=== PATIENT | female | born 1960 | race African-American/Black ===

== ENCOUNTER 2017-07-10 10:44 | Observation (INO) | payer OTHER ==
[~2017-07-10] VITALS: Ht 172.7 cm; Wt 115.0 kg
[2017-07-10] VITALS (8 sets, daily range): BP systolic 122–194; BP diastolic 56–92; PULSE 65–83; RESP 14–18; TEMP 98.3–98.4; O2SAT 94–100
[~2017-07-10 10:44] MED LIST: CENTRUM SILVER; PROT40TA PO; VITAMIN D
[2017-07-10] MEDS ORDERED: SODIUM CHLORIDE 0.9% FLUSH 10 ML FLUSH IVF PRN (11:15)
[2017-07-10] MEDS ORDERED: PRED5TAB PO (11:23)
[2017-07-10] MEDS ORDERED: ACET300T2 PO (11:23)
[2017-07-10] MEDS ORDERED: SULF500T3 PO (11:23)
[2017-07-10] MEDS ORDERED: FURO20TA PO (11:23)
[2017-07-10] MEDS ORDERED: SODIUM CHLOR 0.9% 1000 ML INJ 1,000 ML IV ONE (11:24)
--- NOTE | 2017-07-10 11:40 | PD ---
HPI Chief Complaint: Seizure Time Seen by Provider: 11:24 Travel History International Travel<30 days: No Contact w/Intl Traveler<30days: No Traveled to known affect area: No History of Present Illness HPI 56-year-old female patient with history of multiple episodes of previous TIAs, most recently at [facility], hypertension, presents to the ER today brought in by her coworker because she started having similar symptoms of the last time, difficulty talking, stated right sided numbness. Patient initially was thought to have seizure history but she actually denies seizure history when she arrived in the room. Considering her recent history and symptoms, stroke alert was called. Modifying Factors: None Associated Signs & Symptoms: Stroke alert Risk Factors: Previous history of TIAs PFSH Past Medical History Anxiety: Yes Cancer: No Cardiovascular Problems: No Diabetes: No Endocrine: No Genitourinary: No Hepatitis: No Hiatal Hernia: Yes Immune Disorder: No Musculoskeletal: No Neurologic: No Psychiatric: No Reproductive: No Respiratory: No Immunizations Current: Yes Thyroid Disease: No ?: Not Past Surgical History Abdominal Surgery: Yes (GALLBLADDER) AICD: No Cardiac Surgery: No Ear Surgery: No Endocrine Surgery: No Eye Surgery: No Genitourinary Surgery: No Gynecologic Surgery: Yes (HYSTERECTOMY,TUBAL LIGATION) Joint Replacement: No Oral Surgery: No Pacemaker: No Thoracic Surgery: No Other Surgery: Yes (GALLBLADDER,HYSTERECTOMY, ABDOMINAL SCAR TISSUE,HIATAL HERNIA) Social History Alcohol Use: Yes Tobacco Use: No Substance Use: No Allergies-Medications (Allergen,Severity, Reaction): Coded Allergies: No Known Allergies (Verified Allergy, Unknown, 07/10/17) Reported Meds & Prescriptions Reported Meds & Active Scripts Active Reported Acetaminophen-Codeine 300-30 mg Tab 1 Tab PO Q4H PRN Sulfasalazine 500 Mg Tab 500 Mg PO Q6H Prednisone 5 Mg Tab 5 Mg PO DAILY Furosemide 20 Mg Tab 20 Mg PO DAILY Review of Systems ROS Limitations: Altered Mental Status Except as stated in HPI: all other systems reviewed are Neg Physical Exam Narrative GENERAL: Well-developed middle age -[place] female patient currently in mild distress. Awake, lethargic, oriented 3, able to answer questions appropriately although slowly. SKIN: Focused skin assessment warm/dry. HEAD: Atraumatic. Normocephalic. EYES: Pupils equal and round. No scleral icterus. No injection or drainage. ENT: No nasal bleeding or discharge. Mucous membranes pink and moist. NECK: Trachea midline. No JVD. CARDIOVASCULAR: Regular rate and rhythm. No murmur appreciated. RESPIRATORY: No accessory muscle use. Clear to auscultation. Breath sounds equal bilaterally. GASTROINTESTINAL: Abdomen soft, non-tender, nondistended. Hepatic and splenic margins not palpable. MUSCULOSKELETAL: No obvious deformities. No clubbing. No cyanosis. No edema. NEUROLOGICAL: Awake and alert. No obvious cranial nerve deficits. Mild right leg weakness compared to the left. Slow speech, no dysarthria, no aphasia. PSYCHIATRIC: Appropriate mood and affect; insight and judgment normal. Data Data Last Documented VS Vital Signs Date Time Temp Pulse Resp B/P (MAP) Pulse Ox O2 Delivery O2 Flow Rate FiO2 07/10/17 12:30 97 Room Air 07/10/17 12:11 79 142/79 (100) 07/10/17 11:25 2.00 07/10/17 10:48 98.4 14 Orders Orders Complete Blood Count With Diff (07/10/17 11:12) Electrocardiogram (07/10/17 ) Blood Glucose (07/10/17 11:12) Ecg Monitoring (07/10/17 11:12) Iv Access Insert/Monitor (07/10/17 11:12) Oximetry (07/10/17 11:12) Comprehensive Metabolic Panel (07/10/17 11:12) Sodium Chloride 0.9% Flush (Ns Flush) (07/10/17 11:15) Diet Npo (07/10/17 Lunch) Activity Bed Rest (07/10/17 ) Electrocardiogram (07/10/17 ) I-Stat Creatinine (07/10/17 11:24) I-Stat Profile (07/10/17 11:24) Prothrombin Time / Inr (Pt) (07/10/17 11:24) Act Partial Throm Time (Ptt) (07/10/17 11:24) Fibrinogen (07/10/17 11:24) Creatine Kinase (Cpk) (07/10/17 11:24) Troponin I (07/10/17 11:24) Ua Includes Microscopic (07/10/17 11:24) Drug Screen, Random Urine (07/10/17 11:24) Type And Screen (07/10/17 11:24) Ct Brain W/O Iv Contrast(Rout) (07/10/17 ) Neuro Checks Q2HX12,Q4H (07/10/17 11:24) Nursing Bedside Swallow Assess .ONCE (07/10/17 11:24) NPO (07/10/17 11:24) Oxygen Administration (07/10/17 11:24) Sodium Chlor 0.9% 1000 Ml Inj (Ns 1000 M (07/10/17 11:24) Resp Oxygen Jovan C Titrat 1-4 L (07/10/17 11:24) Cath For Specimen (07/10/17 11:24) Mri Brain W/O Contrast (07/10/17 11:30) Aspirin (Aspirin) (07/10/17 12:45) Consult Neurology (07/10/17 ) (Hub Use Only)Inp Phy Cons/Ref (07/10/17 ) Admit Order (Ed Use Only) (07/10/17 12:45) Labs Laboratory Tests Test 07/10/17 11:30 07/10/17 11:35 07/10/17 12:28 Bedside Hemoglobin 12.6 G/DL Bedside Hematocrit 37.0 % Prothrombin Time 10.5 SEC Prothromb Time International Ratio 1.0 RATIO Activated Partial Thromboplast Time 24.3 SEC Fibrinogen 383 mg/dL Bedside Sodium 139 MMOL/L Blood Urea Nitrogen 13 MG/DL Creatinine 0.70 MG/DL Random Glucose 89 MG/DL Total Protein 8.2 GM/DL Albumin 3.7 GM/DL Calcium Level 9.0 MG/DL Alkaline Phosphatase 177 U/L Aspartate Amino Transf (AST/SGOT) 20 U/L Alanine Aminotransferase (ALT/SGPT) 28 U/L Total Bilirubin 0.3 MG/DL Sodium Level 138 MEQ/L Potassium Level 3.8 MEQ/L Chloride Level 105 MEQ/L Carbon Dioxide Level 25.4 MEQ/L Bedside Potassium 3.9 MMOL/L Bedside Chloride 104 MMOL/L Anion Gap 8 MEQ/L Bedside Blood Urea Nitrogen 15 MG/DL Bedside Creatinine 0.7 MG/DL Estimat Glomerular Filtration Rate 106 ML/MIN Bedside Glucose 93 MG/DL Total Creatine Kinase 66 U/L Troponin I LESS THAN 0.02 NG/ML White Blood Count 9.2 TH/MM3 Red Blood Count 4.21 MIL/MM3 Hemoglobin 12.2 GM/DL Hematocrit 36.9 % Mean Corpuscular Volume 87.6 FL Mean Corpuscular Hemoglobin 29.0 PG Mean Corpuscular Hemoglobin Concent 33.1 % Red Cell Distribution Width 12.9 % Platelet Count 247 TH/MM3 Mean Platelet Volume 7.9 FL Neutrophils (%) (Auto) 74.0 % Lymphocytes (%) (Auto) 14.4 % Monocytes (%) (Auto) 9.6 % Eosinophils (%) (Auto) 1.5 % Basophils (%) (Auto) 0.5 % Neutrophils # (Auto) 6.8 TH/MM3 Lymphocytes # (Auto) 1.3 TH/MM3 Monocytes # (Auto) 0.9 TH/MM3 Eosinophils # (Auto) 0.1 TH/MM3 Basophils # (Auto) 0.0 TH/MM3 CBC Comment DIFF FINAL Differential Comment Urine Color LIGHT-YELLOW Urine Turbidity CLEAR Urine pH 7.0 Urine Specific [place] 1.005 Urine Protein NEG mg/dL Urine Glucose (UA) NEG mg/dL Urine Ketones NEG mg/dL Urine Occult Blood TRACE Urine Nitrite NEG Urine Bilirubin NEG Urine Urobilinogen LESS THAN 2.0 MG/DL Urine Leukocyte Esterase NEG Urine RBC 1 /hpf Urine Squamous Epithelial Cells <1 /hpf Urine Bacteria RARE /hpf Urine Opiates Screen NEG Urine Barbiturates Screen NEG Urine Amphetamines Screen NEG Urine Benzodiazepines Screen NEG Urine Cocaine Screen NEG Urine Cannabinoids Screen NEG MDM Medical Screen Exam Complete: Yes Emergency Medical Condition: Yes Medical Record Reviewed: Yes EKG Prior to Arrival: Yes Differential Diagnosis TIA versus hypertensive urgency versus CVA versus ICH versus metabolic issues versus dehydration Narrative Course Case was discussed with Dr. Jauregui and he states he actually saw the patient to [facility] recently after the TIA symptoms, states that he knows her well and had done MRIs on her and it was all negative. He does not feel that she had a stroke, thinks that he may be psychogenic versus complex migraine. At this point, he would recommend that we get a stat MRI without contrast of the brain first before initiating any TPA procedure especially because the symptoms are fairly mild and that he is more suspicious that this is the same issue as last time, not a TIA or stroke. MRI was negative for any signs of acute stroke. Case was discussed with Dr. Jauregui who agrees to giving aspirin for the stroke like symptoms. He states he will see the patient. Planning to admit for observation for further evaluation. Case is discussed with family practice resident service for admission. Stroke Alert NIHSS NIH Stroke Scale Result: 1 NIHSS Time Completed: 11:30 Thrombolytic Delayed Delay > 60 Mins From Arrival: Delay in Stroke Diagnosis Delay Comment: Patient was initially thought to have history of seizures, thought to have come in post seizure. Diagnosis Diagnosis: Primary Impression: National Institutes of Health (NIH) Stroke Scale level of consciousness score 1 , not alert; but arousable by minor stimulation to obey, answer, or respond Admitting Physician Requests: Admit Soham Krishnan MD Jul 10, 2017 11:40
[2017-07-10 11:47] LABS: AUTOMATED NEUTROPHIL # 6.8 TH/MM3 (1.8-7.7); BASOPHIL % 0.5 % (0.0-2.0); EOSINOPHIL # 0.1 TH/MM3 (0-0.4); EOSINOPHIL % 1.5 % (0.0-4.0); HEMATOCRIT 36.9 % (35.0-46.0); HEMO FLAGS DIFF FINAL; LYMPH % 14.4 % (9.0-44.0); LYMPHOCYTE # 1.3 TH/MM3 (1.0-4.8); MEAN CELL VOLUME 87.6 FL (80.0-100.0); MEAN CORPUSCULAR HGB CONC 33.1 % (32.0-36.0); MONO % 9.6 % (0.0-8.0); PLATELET COUNT 247 TH/MM3 (150-450); RED BLOOD COUNT 4.21 MIL/MM3 (4.00-5.30); RED CELL DISTRIBUTION WIDTH 12.9 % (11.6-17.2); WHITE BLOOD COUNT 9.2 TH/MM3 (4.0-11.0)
[2017-07-10 11:50] LABS: I-STAT POTASSIUM 3.9 MMOL/L (3.5-4.9); I-STAT SODIUM 139 MMOL/L (138-146)
[2017-07-10 12:00] LABS: APTT (PATIENT) 24.3 SEC (24.3-30.1); PROTHROMBIN TIME - PATIENT 10.5 SEC (9.8-11.6)
--- NOTE | 2017-07-10 12:02 | RADRPT ---
EXAM DATE/TIME: 07/10/2017 11:26 [facility] COMPARISON: No previous studies available for comparison. INDICATIONS : Seizures, right sided weakness RADIATION DOSE: 56.35 CTDIvol (mGy) This report was called by Dr. Quick to Dr. Sanford at 1144 MEDICAL HISTORY : Unable to obtain SURGICAL HISTORY : Unable to obtain ENCOUNTER: Initial ACUITY: 1 day PAIN SCALE: Non-responsive LOCATION: cranial TECHNIQUE: Multiple contiguous axial images were obtained of the head. Using automated exposure control and adj ustment of the mA and/or kV according to patient size, radiation dose was kept as low as reasonably a chievable to obtain optimal diagnostic quality images. DICOM format image data is available electro nically for review and comparison. FINDINGS: CEREBRUM: The ventricles are normal for age. No evidence of midline shift, mass lesion, hemorrhage or acute in farction. No extra-axial fluid collections are seen. Also noted is a "empty sella", an anatomic vari ant. POSTERIOR FOSSA: The cerebellum and brainstem are intact. The 4th ventricle is midline. The cerebellopontine angle i s unremarkable. EXTRACRANIAL: The visualized portion of the orbits is intact. SKULL: The calvaria is intact. No evidence of skull fracture. CONCLUSION: 1. No acute intracranial process. 2. Empty sella, an anatomic variant. Juventino Wells MD on July 10, 2017 at 11:55 Board Certified Radiologist. This report was verified electronically.
[2017-07-10 12:19] LABS: ALT (GPT) 28 U/L (10-53); ANION GAP 8 MEQ/L (5-15); AST (GOT) 20 U/L (15-37); BICARBONATE 25.4 MEQ/L (21.0-32.0); BLOOD UREA NITROGEN 13 MG/DL (7-18); CHLORIDE 105 MEQ/L (98-107); GLOMERULAR FILTRATION RATE 106 ML/MIN (>89); POTASSIUM 3.8 MEQ/L (3.5-5.1); SODIUM (NA) 138 MEQ/L (136-145)
[2017-07-10 12:22] LABS: ALKALINE PHOSPHATASE 177 U/L (45-117); TOTAL BILIRUBIN ADULT 0.3 MG/DL (0.2-1.0)
[2017-07-10 12:26] LABS: CREATINE KINASE 66 U/L (26-192)
--- NOTE | 2017-07-10 12:30 | RADRPT ---
EXAM DATE/TIME: 07/10/2017 12:01 [facility] COMPARISON: No previous studies available for comparison. INDICATIONS : Stroke alert. MEDICAL HISTORY : Rheumatoid arthritis. SURGICAL HISTORY : Hysterectomy. Cholecystectomy. ENCOUNTER: Initial ACUITY: 1 day PAIN SCORE: 0/10 LOCATION: cranial TECHNIQUE: Multiplanar, multisequence MRI of the brain was performed without contrast. FINDINGS: CEREBRUM: The ventricles are normal for age. No evidence of midline shift, mass lesion, hemorrhage or acute in farction. No extraaxial fluid collections are seen. The pituitary gland and suprasellar cistern are normal in configuration. WHITE MATTER: No significant signal abnormalities are seen in the white matter. POSTERIOR FOSSA: The cerebellum and brainstem are intact. The 4th ventricle is midline. The cerebellopontine angle is unremarkable. The cerebellar tonsils are normal in position. DIFFUSION IMAGING: No focal areas of restricted diffusion are seen. No evidence of acute infarction. EXTRACRANIAL: The visualized portions of the orbits and paranasal sinuses are unremarkable. CONCLUSION: Normal examination. Cody Jc MD on July 10, 2017 at 12:28 Board Certified Radiologist. This report was verified electronically.
[2017-07-10] MEDS ORDERED: ASPIRIN 325 MG TAB PO ONE (12:45)
[2017-07-10 12:59] LABS: BACTERIA, URINE RARE /hpf; BLOOD, URINE TRACE (NEG); GLUCOSE,URINE NEG (NEG); KETONE, URINE NEG (NEG); NITRITE,URINE NEG (NEG); SQUAMOUS EPITHELIAL CELL URINE <1 /hpf (0-5); URINE COLOR LIGHT-YELLOW (YELLW/STRAW)
[2017-07-10] MEDS ORDERED: SODIUM CHLORIDE 0.9% FLUSH 10 ML FLUSH IV FLUSH PRN (13:00)
[2017-07-10] MEDS ORDERED: NALOXONE HCL 0.4 MG/ML AMP IV PUSH PRN (13:00)
[2017-07-10] MEDS: SODIUM CHLORIDE 0.9% FLUSH 10 ML FLUSH IV FLUSH SCH ×2 (13:25→20:42)
[2017-07-10] MEDS ORDERED: IBUPROFEN 400 MG TAB PO PRN (14:45)
[2017-07-10] MEDS ORDERED: ACETAMINOPHEN 1000 MG/100 ML 65 ML IV ONE ×2 (14:45→17:15)
--- NOTE | 2017-07-10 14:54 | HHI.FPPN ---
Subjective Remarks Pt. seen, examined and discussed with the medicine team. is informant for this a 56 yo AA female who has had for the third time a spell of staring off, feeling weak, nonresponding but no actual loss of consciousness. She was seen at [facility] and had a several day work-up and was also seen by Dr. Jauregui, neurologist. Per her all her imaging was normal including CTs and MRIs. These spells last for a few minutes and are not associated with tongue biting, incontinence, shaking or seizure activity, although sister reports her eyes deviate to the right. Speech is soft but lucid. No facial assymetry has been noted. Pt. is complaining of nausea and headache. Per she has a headache after each of these episodes. He notes that at home she will occasionally be seen to be staring off but will eventually respond. Please see H&P for this admission for additional historical details. Objective Vitals Vital Signs Date Time Temp Pulse Resp B/P (MAP) Pulse Ox O2 Delivery O2 Flow Rate FiO2 07/10/17 12:56 100 21 07/10/17 12:30 97 Room Air 07/10/17 12:11 79 142/79 (100) 07/10/17 11:52 161/72 (101) 07/10/17 11:30 194/92 (126) 07/10/17 11:25 98 2.00 07/10/17 11:25 98 Nasal Cannula 2.00 07/10/17 10:48 98.4 73 14 155/87 (109) 97 Result Diagram: 07/10/17 1135 07/10/17 1130 Other Results Laboratory Tests Test 07/10/17 11:30 07/10/17 11:35 07/10/17 12:28 Bedside Hemoglobin 12.6 G/DL Bedside Hematocrit 37.0 % Prothrombin Time 10.5 SEC Prothromb Time International Ratio 1.0 RATIO Activated Partial Thromboplast Time 24.3 SEC Fibrinogen 383 mg/dL Bedside Sodium 139 MMOL/L Blood Urea Nitrogen 13 MG/DL Creatinine 0.70 MG/DL Random Glucose 89 MG/DL Total Protein 8.2 GM/DL Albumin 3.7 GM/DL Calcium Level 9.0 MG/DL Alkaline Phosphatase 177 U/L Aspartate Amino Transf (AST/SGOT) 20 U/L Alanine Aminotransferase (ALT/SGPT) 28 U/L Total Bilirubin 0.3 MG/DL Sodium Level 138 MEQ/L Potassium Level 3.8 MEQ/L Chloride Level 105 MEQ/L Carbon Dioxide Level 25.4 MEQ/L Bedside Potassium 3.9 MMOL/L Bedside Chloride 104 MMOL/L Anion Gap 8 MEQ/L Bedside Blood Urea Nitrogen 15 MG/DL Bedside Creatinine 0.7 MG/DL Estimat Glomerular Filtration Rate 106 ML/MIN Bedside Glucose 93 MG/DL Total Creatine Kinase 66 U/L Troponin I LESS THAN 0.02 NG/ML White Blood Count 9.2 TH/MM3 Red Blood Count 4.21 MIL/MM3 Hemoglobin 12.2 GM/DL Hematocrit 36.9 % Mean Corpuscular Volume 87.6 FL Mean Corpuscular Hemoglobin 29.0 PG Mean Corpuscular Hemoglobin Concent 33.1 % Red Cell Distribution Width 12.9 % Platelet Count 247 TH/MM3 Mean Platelet Volume 7.9 FL Neutrophils (%) (Auto) 74.0 % Lymphocytes (%) (Auto) 14.4 % Monocytes (%) (Auto) 9.6 % Eosinophils (%) (Auto) 1.5 % Basophils (%) (Auto) 0.5 % Neutrophils # (Auto) 6.8 TH/MM3 Lymphocytes # (Auto) 1.3 TH/MM3 Monocytes # (Auto) 0.9 TH/MM3 Eosinophils # (Auto) 0.1 TH/MM3 Basophils # (Auto) 0.0 TH/MM3 CBC Comment DIFF FINAL Differential Comment Urine Color LIGHT-YELLOW Urine Turbidity CLEAR Urine pH 7.0 Urine Specific [place] 1.005 Urine Protein NEG mg/dL Urine Glucose (UA) NEG mg/dL Urine Ketones NEG mg/dL Urine Occult Blood TRACE Urine Nitrite NEG Urine Bilirubin NEG Urine Urobilinogen LESS THAN 2.0 MG/DL Urine Leukocyte Esterase NEG Urine RBC 1 /hpf Urine Squamous Epithelial Cells <1 /hpf Urine Bacteria RARE /hpf Urine Opiates Screen NEG Urine Barbiturates Screen NEG Urine Amphetamines Screen NEG Urine Benzodiazepines Screen NEG Urine Cocaine Screen NEG Urine Cannabinoids Screen NEG Imaging Last Impressions Brain MRI 07/10/17 1130 Signed Impressions: Service Date/Time: Monday, July 10, 2017 12:01 - CONCLUSION: Normal examination. Cody Jc MD Head CT 07/10/17 0000 Signed Impressions: Service Date/Time: Monday, July 10, 2017 11:26 - CONCLUSION: 1. No acute intracranial process. 2. Empty sella, an anatomic variant. Juventino Wells MD Objective Remarks O. CONSTITUTIONAL/GEN: normally nourished, lying on gurney, c/o headache and nausea. EYES: conjunctiva normal, PERRLA, EOMI. Sclerae injected bilaterally. ENT: Mouth and pharynx normal. MM moist. Some dental caries. NECK: No palpable thyromegaly LUNGS: clear A-P, respiratory effort is normal. CARDIOVASCULAR: RR without murmur or gallop. Trace to 1+ LE edema. GI/ABD: soft without masses, without organomegaly. Scars from previous surgery. NEURO: No focal deficits. Pt. only poorly cooperative with exam. SKIN: color normal, no rashes noted. Dermatofibromata both anterior lower legs. HEME/LYMPH: no bruising, petechia or significant adenopathy MUSC: Extremities are normal in appearance. PSYCH/MENTAL STATUS: Lethargic, speaking minimally. EKG: within normal limits A/P Assessment and Plan Weakness, headache and nausea after dizziness with no syncope. Please see orders. Attending Attestation Patient seen and examined. Case reviewed and discussed with the resident team. Agree with plan of care as discussed with me and documented in the resident note. Leanna Banegas MD Jul 10, 2017 14:54
--- NOTE | 2017-07-10 14:54 | HHI.HP ---
HPI Service Family Medicine Primary Care Physician Artie Peralta Jr, MD Admission Diagnosis stroke alert Diagnoses: International Travel<30 Days: No Contact w/Intl Traveler<30days: No Known Affected Area: No History of Present Illness 56 yr old F w/ PMHx of RA presents with headache and right-sided weakness. Accompanied by , who provides all of the history. Reports that she was at work and felt dizzy, lightheaded, and felt as if she was going to pass out. She starting having some weakness on her right side and also slurred speech. She was transported to the ED via [facility]. A stroke alert was called in the ED. CT and MRI were negative. TPA not indicated. Neurology consulted. Dr. Jauregui is familiar with this patient. reports that this is the 3rd episode she has had in the past month. On Jun.10, she was dizzy, lightheaded, and became unresponsive for a few secs. She was brought to [facility] and had an extensive stroke and seizure work-up, which was all negative. The next episode she had was on and work up was negative at [facility]. Both and sister (nurse in [place]) reports that she has been having unresponsive episodes in the past month that last a few secs to several minutes. They report that her eyes would deviated to the right during this episodes. Denies LOC, urinary incontinence, shaking, and tongue biting, post- ictal state, CP, and SOB. (Qiana Acosta MD R1) Review of Systems Constitutional: DENIES: Fever, Weight loss, Night Sweats Eyes: DENIES: Blurred vision, Diplopia Ears, nose, mouth, throat: DENIES: Tinnitus Respiratory: DENIES: Cough, Wheezing, Shortness of breath Cardiovascular: DENIES: Chest pain, Palpitations Gastrointestinal: COMPLAINS OF: Nausea, DENIES: Abdominal pain, Vomiting Genitourinary: DENIES: Dysuria Musculoskeletal: DENIES: Muscle aches Hematologic/lymphatic: DENIES: Lymphadenopathy Neurologic: COMPLAINS OF: Headache, DENIES: Paresthesias, Speech Problems Psychiatric: DENIES: Confusion Other per HPI (Qiana Acosta MD R1) Past Family Social History Past Medical History Rheumatoid Arthritis Herniated Disc Sciatica Past Surgical History Meniscus repair in L knee Hysterectomy Hernia Repair (Qiana Acosta MD R1) Allergies: Coded Allergies: No Known Allergies (Verified Allergy, Unknown, 07/10/17) Family History Dad of lung cancer Mom had uterine cancer Sister had breast cancer Social History Lives with and autistic son Denies smoking Occasional drinker Denies illicit drug use (DaveQiana Alona Ronquillo MD R1) Physical Exam Vital Signs Vital Signs Date Time Temp Pulse Resp B/P (MAP) Pulse Ox O2 Delivery O2 Flow Rate FiO2 07/10/17 12:56 100 21 07/10/17 12:30 97 Room Air 07/10/17 12:11 79 142/79 (100) 07/10/17 11:52 161/72 (101) 07/10/17 11:30 194/92 (126) 07/10/17 11:25 98 2.00 07/10/17 11:25 98 Nasal Cannula 2.00 07/10/17 10:48 98.4 73 14 155/87 (109) 97 Physical Exam GENERAL: lying in bed, complains of severe GRAVES and nausea SKIN: Dermatofibromata on both anterior lower legs. HEAD: Atraumatic. Normocephalic. EYES: PERRLA ENT: Throat clear. MMM. Dental caries. NECK: Trachea midline. No JVD or lymphadenopathy. CARDIOVASCULAR: RRR, no m/r/g RESPIRATORY: Clear to auscultation. Breath sounds equal bilaterally. No wheezes , rales, or rhonchi. GASTROINTESTINAL: Abdomen soft, non-tender, nondistended. No hepato-splenomegaly , or palpable masses. No guarding. MUSCULOSKELETAL: Extremities without clubbing, cyanosis, or edema. NEUROLOGICAL: lethargic, only able to answer a few yes/no questions and follows simple commands Laboratory Laboratory Tests Test 07/10/17 11:30 07/10/17 11:35 07/10/17 12:28 Bedside Hemoglobin 12.6 Bedside Hematocrit 37.0 Prothrombin Time 10.5 Prothromb Time International Ratio 1.0 Activated Partial Thromboplast Time 24.3 Fibrinogen 383 Bedside Sodium 139 Blood Urea Nitrogen 13 Creatinine 0.70 Random Glucose 89 Total Protein 8.2 Albumin 3.7 Calcium Level 9.0 Alkaline Phosphatase 177 Aspartate Amino Transf (AST/SGOT) 20 Alanine Aminotransferase (ALT/SGPT) 28 Total Bilirubin 0.3 Sodium Level 138 Potassium Level 3.8 Chloride Level 105 Carbon Dioxide Level 25.4 Bedside Potassium 3.9 Bedside Chloride 104 Anion Gap 8 Bedside Blood Urea Nitrogen 15 Bedside Creatinine 0.7 Estimat Glomerular Filtration Rate 106 Bedside Glucose 93 Total Creatine Kinase 66 Troponin I LESS THAN 0.02 White Blood Count 9.2 Red Blood Count 4.21 Hemoglobin 12.2 Hematocrit 36.9 Mean Corpuscular Volume 87.6 Mean Corpuscular Hemoglobin 29.0 Mean Corpuscular Hemoglobin Concent 33.1 Red Cell Distribution Width 12.9 Platelet Count 247 Mean Platelet Volume 7.9 Neutrophils (%) (Auto) 74.0 Lymphocytes (%) (Auto) 14.4 Monocytes (%) (Auto) 9.6 Eosinophils (%) (Auto) 1.5 Basophils (%) (Auto) 0.5 Neutrophils # (Auto) 6.8 Lymphocytes # (Auto) 1.3 Monocytes # (Auto) 0.9 Eosinophils # (Auto) 0.1 Basophils # (Auto) 0.0 CBC Comment DIFF FINAL Differential Comment Urine Color LIGHT-YELLOW Urine Turbidity CLEAR Urine pH 7.0 Urine Specific [place] 1.005 Urine Protein NEG Urine Glucose (UA) NEG Urine Ketones NEG Urine Occult Blood TRACE Urine Nitrite NEG Urine Bilirubin NEG Urine Urobilinogen LESS THAN 2.0 Urine Leukocyte Esterase NEG Urine RBC 1 Urine Squamous Epithelial Cells <1 Urine Bacteria RARE Urine Opiates Screen NEG Urine Barbiturates Screen NEG Urine Amphetamines Screen NEG Urine Benzodiazepines Screen NEG Urine Cocaine Screen NEG Urine Cannabinoids Screen NEG (Qiana Acosta MD R1) Result Diagram: 07/10/17 1135 07/10/17 1130 Caprini VTE Risk Assessment Caprini VTE Risk Assessment: No/Low Risk (score <= 1) Caprini Risk Assessment Model Point Value = 1 Point Value = 2 Point Value = 3 Point Value = 5 Age 41-60 Minor surgery BMI > 25 kg/m2 Swollen legs Varicose veins or History of unexplained or recurrent spontaneous Oral contraceptives or hormone replacement Sepsis (< 1 month) Serious lung disease, including pneumonia (< 1 month) Abnormal pulmonary function Acute myocardial infarction Congestive heart failure (< 1 month) History of inflammatory bowel disease Medical patient at bed rest Age 61-74 Arthroscopic surgery Major open surgery (> 45 min) Laparoscopic surgery (> 45 min) Malignancy Confined to bed (> 72 hours) Immobilizing plaster cast Central venous access Age >= 75 History of VTE Family history of VTE Factor V Leiden Prothrombin [id number] Lupus anticoagulant Anticardiolipin antibodies Elevated serum homocysteine Heparin-induced thrombocytopenia Other congenital or acquired thrombophilia Stroke (< 1 month) Elective arthroplasty Hip, pelvis, or leg fracture Acute spinal cord injury (< 1 month) Prophylaxis Regimen Total Risk Factor Score Risk Level Prophylaxis Regimen 0-1 Low Early ambulation 2 Moderate Order ONE of the following: *Sequential Compression Device (SCD) *Heparin 5000 units SQ BID 3-4 Higher Order ONE of the following medications: *Heparin 5000 units SQ TID *Enoxaparin/Lovenox 40 mg SQ daily (WT < 150 kg, CrCl > 30 mL/min) *Enoxaparin/Lovenox 30 mg SQ daily (WT < 150 kg, CrCl > 10-29 mL/min) *Enoxaparin/Lovenox 30 mg SQ BID (WT < 150 kg, CrCl > 30 mL/min) AND/OR *Sequential Compression Device (SCD) 5 or more Highest Order ONE of the following medications: *Heparin 5000 units SQ TID (Preferred with Epidurals) *Enoxaparin/Lovenox 40 mg SQ daily (WT < 150 kg, CrCl > 30 mL/min) *Enoxaparin/Lovenox 30 mg SQ daily (WT < 150 kg, CrCl > 10-29 mL/min) *Enoxaparin/Lovenox 30 mg SQ BID (WT < 150 kg, CrCl > 30 mL/min) AND *Sequential Compression Device (SCD) (Qiana Acosta MD R1) Assessment and Plan Assessment and Plan 56 yr old F w/ RA presented with GRAVES and weakness. Stroke workup negative. Neurology consulted. Most likely psychogenic vs atypical migraine, admitted for observation and further evaluation. Code Status Full Code Discussed Condition With Dr. Banegas and Dr. Wallis (Qiana Acosta MD R1) Attending Attestation Patient seen and examined. Case reviewed and discussed with the resident team. Agree with plan of care as discussed with me and documented in the resident note. (Leanna Banegas MD) Problem List: (1) National Institutes of Health (NIH) Stroke Scale level of consciousness score 1, not alert; but arousable by minor stimulation to obey, answer, or respond ICD Codes: Z78.9 - Other specified health status Status: Acute Plan: s/p 1x aspirin 325mg Head CT and Brain MRI negative. ED physician discussed case with Dr. Jauregui, who is familiar with the patient. Psychogenic vs complex migraine Neurology consulted, appreciate recs (2) GRAVES (headache) ICD Codes: R51 - Headache Plan: -1x dose of IV Tylenol -Ibuprofen 400mg PO q6h for GRAVES (3) Rheumatoid arthritis ICD Codes: M06.9 - Rheumatoid arthritis, unspecified Plan: -Held sulfasalazine and prednisone (4) Nutrition, metabolism, and development symptoms ICD Codes: R63.8 - Other symptoms and signs concerning food and fluid intake Plan: Diet: Regular diet after swallow eval Fluids: 140mls/hr MIVF Vitals q4hr, monitor I & Os DVT ppx: lovenox (Qiana Acosta MD R1) Qiana Acosta MD R1 Jul 10, 2017 14:54 Leanna Banegas MD Jul 11, 2017 09:07
[2017-07-10] MEDS ORDERED: ENOXAPARIN SODIUM 40 MG/0.4 ML SYRINGE SQ SCH (15:00)
[2017-07-10] MEDS: ONDANSETRON HCL 4 MG/2 ML VIAL IVP PRN (17:43)
--- NOTE | 2017-07-10 21:54 | MB ---
cc: MINI THOMPSON PHD SUSY VELÁSQUEZ MD DATE OF CONSULTATION: 07/10/2017 REASON FOR CONSULTATION: Stroke alert HISTORY OF PRESENT ILLNESS Ms. Houston is a 56-year-old woman who is known to me who has previous history of neurologic symptoms thought to be possibly related to neurologic migraine. She states she was at work earlier today, suddenly began to feel very lightheaded. She had trouble getting words out and her words were very slow. She also felt numb on the right side, arm and leg. She also developed severe pounding headache with nausea and vomiting. She presented to the emergency room as a stroke alert, NIH stroke scale was very low about a one. She had mild numbness on the right side. I discussed the case with Dr. Krishnan. Because of the history of neurologic migraine, I felt that this was the likely etiology, recommended a stat MRI of the brain. This was performed which revealed no acute infarction, therefore, I recommended not giving TPA because of that. Since then her symptoms have improved. PAST MEDICAL HISTORY: 1. History of migraine headaches. 2. Cholecystectomy. 3. Hysterectomy. 4. Tubal ligation. MEDICATIONS AT HOME: 1. Sulfasalazine. 2. Prednisone. 3. Lasix. 4. Acetaminophen. ALLERGIES: NONE KNOWN. NEUROLOGICAL EXAMINATION: Blood pressure is 146/79, pulse 65, respiratory rate is 18, temperature is 98 degrees. Higher cortical functions are normal including speech. Cranial nerves are intact. Motor exam: She has no focal deficits. She has 5/5 strength in both upper and lower extremities. There is no drift. Fine motor skills are normal. Sensory exam shows subjective decreased sensation to soft tissue, right arm and right leg, compared with the left, reflexes are symmetric. MRI of the brain is normal. CT brain is normal. LABORATORY DATA: White blood cell count 9,200, hemoglobin 12.2, hematocrit 36.9%, platelet count 247,000. Sodium is 139, potassium 3.9, chloride 104, CO2 is 105. Creatinine 0.7, BUN is 13. Coag 10.5, INR 1, APTT 24.3. Toxicology screen is negative. IMPRESSION Probable neurologic migraine, doubt stroke. Therefore the patient was not a candidate for TPA. RECOMMENDATIONS Start Topamax 25 mg b.i.d. for migraine, also start aspirin 81 mg daily. She recently had an extensive workup at [facility] which was negative including MRI of the brain. If not done already, consider transesophageal echocardiogram to be sure there is no PFO. Also check labs to rule out hypercoagulable state. MD DAYNA Mae/MAX /9:21 PM /9:40 PM
[2017-07-10] MEDS: TOPIRAMATE 25 MG TAB PO SCH (22:30)
[2017-07-10] MEDS: SODIUM CHLOR 0.9% 1000 ML INJ 1,000 ML IV SCH (23:02)
[2017-07-11 00:57] VITALS: BP 185/84; PULSE 87; RESP 18; TEMP 98; O2SAT 98
[2017-07-11] MEDS: ONDANSETRON HCL 4 MG/2 ML VIAL IVP PRN (01:11)
[2017-07-11 02:54] VITALS: BP 127/62; PULSE 76; RESP 18; TEMP 98.5; O2SAT 97
[2017-07-11 04:37] VITALS: BP 117/55; PULSE 78; RESP 18; TEMP 98.5; O2SAT 97
[2017-07-11] MEDS: SODIUM CHLOR 0.9% 1000 ML INJ 1,000 ML IV SCH (06:25)
[2017-07-11 08:06] VITALS: BP 134/67; PULSE 62; RESP 19; TEMP 98.4; O2SAT 95
[2017-07-11] MEDS: SODIUM CHLORIDE 0.9% FLUSH 10 ML FLUSH IV FLUSH SCH (09:00)
[2017-07-11] MEDS ORDERED: ASPIRIN 325 MG TAB PO SCH (09:00)
[2017-07-11] MEDS: TOPIRAMATE 25 MG TAB PO SCH (09:40)
--- NOTE | 2017-07-11 11:09 | HHI.DCPOC ---
Discharge Care Plan Diagnosis: (1) Migraine Goals to Promote Your Health * To prevent worsening of your condition and complications, take your medications as prescribed and follow-up with a primary care physician and your neurologist within 1 week after hospital discharge. Directions to Meet Your Goals Take your medications as prescribed Follow your dietary instruction Follow activity as directed Keep your appointments as scheduled Take your immunizations and boosters as scheduled If your symptoms worsen call your PCP, if no PCP go to Urgent Care Center or Emergency Room Smoking is Dangerous to Your Health. Avoid second hand smoke Call the 24-hour hour crisis hotline for domestic abuse at Miguel Wallis MD R2 Jul 11, 2017 11:09
[2017-07-11] MEDS ORDERED: ASPI-516 CHEW (11:10)
[2017-07-11] MEDS ORDERED: TOPI25 PO (11:10)
[2017-07-11] MEDS ORDERED: PROT40TA PO (11:10)
--- NOTE | 2017-07-11 11:23 | HHI.FPPN ---
Subjective Remarks No acute events overnight. Afebrile, vitals stable. Patient seen and examined this morning. Patient awake and alert, answering all questions. Patient states overall she is feeling much better compared to admission. Denies headache, focal neuro deficit, CP. Objective Vitals Vital Signs Date Time Temp Pulse Resp B/P (MAP) Pulse Ox O2 Delivery O2 Flow Rate FiO2 07/11/17 08:06 98.4 62 19 134/67 (89) 95 07/11/17 04:42 21 07/11/17 04:37 98.5 78 18 117/55 (75) 97 07/11/17 02:54 98.5 76 18 127/62 (83) 97 07/11/17 00:57 98.0 87 18 185/84 (117) 98 07/10/17 20:24 98.3 83 18 122/56 (78) 94 07/10/17 18:16 20 07/10/17 16:05 98.3 65 18 146/79 (101) 99 07/10/17 15:12 07/10/17 12:56 100 21 07/10/17 12:30 97 Room Air 07/10/17 12:11 79 142/79 (100) 07/10/17 11:52 161/72 (101) 07/10/17 11:30 194/92 (126) 07/10/17 11:25 98 2.00 07/10/17 11:25 98 Nasal Cannula 2.00 Result Diagram: 07/10/17 1135 07/10/17 1130 Objective Remarks GENERAL: NAD, lying in bed SKIN: Dermatofibromas noted on both anterior lower legs. Warm and dry. HEAD: Atraumatic. Normocephalic. EYES: EOMI. No injection or drainage. ENT: Throat clear. MMM. Dental caries. NECK: Trachea midline. No JVD or lymphadenopathy. CARDIOVASCULAR: RRR, no m/r/g RESPIRATORY: Clear to auscultation. Breath sounds equal bilaterally. No wheezes , rales, or rhonchi. GASTROINTESTINAL: Abdomen soft, non-tender, nondistended. No hepato-splenomegaly , or palpable masses. No guarding. MUSCULOSKELETAL: Extremities without clubbing, cyanosis, or edema. NEUROLOGICAL: Awake, alert, oriented. Normal speech. social services aide grossly normal. Motor grossly normal. A/P Assessment and Plan 56 year old woman with h/o RA admitted for observation due to psychogenic versus atypical complex migraines. Discharge Planning Stable for discharge home today Advised close follow-up with primary care physician and neurology Problem List: (1) National Institutes of Health (NIH) Stroke Scale level of consciousness score 1, not alert; but arousable by minor stimulation to obey, answer, or respond ICD Codes: Z78.9 - Other specified health status Status: Acute Plan: Head CT and Brain MRI negative. ED physician discussed case with Dr. Jauregui, who is familiar with the patient. Psychogenic vs complex migraine Neurology consulted, appreciate recs Patient started on Topamax 25 mg po bid for treatment of migraines Continue aspirin 81 mg daily Hypercoagulability workup per neurology recommendations (2) GRAVES (headache) ICD Codes: R51 - Headache Plan: - Topamax as above - Ibuprofen 400mg PO q6h prn GRAVES (3) Nutrition, metabolism, and development symptoms ICD Codes: R63.8 - Other symptoms and signs concerning food and fluid intake Plan: Diet: Regular Fluids: PO DVT ppx: Miguel Jackson MD R2 Jul 11, 2017 11:23
--- NOTE | 2017-07-11 16:42 | EKG ---
Date Performed: 07/10/2017 Time Performed: 13:08:03 PTAGE: 56 years EKG: Sinus rhythm NORMAL ECG Since PREVIOUS TRACING , no significant change noted PREVIOUS TRACIN10/30/2012 09.34 DOCTOR: Kaden Rosario Interpretating Date/Time 07/11/2017 16:42:16
[2017-07-13 07:53] LABS: THROMBIN TIME FOR LA ND sec (13-19)
== END 2017-07-11 15:40 | disposition home or self-care (01) ==
LOC: NEPE 10:44 → NEDA 12:47 → NEPHCDU 15:14
PROVIDERS: ADMIT Family Medicine; ATTEND Family Medicine
DX: G43.909 Migraine, unspecified, not intractable, without status migrainosus (principal); R29.818 Other symptoms and signs involving the nervous system; F41.9 Anxiety disorder, unspecified; R53.1 Weakness; R42 Dizziness and giddiness; R11.2 Nausea with vomiting, unspecified; M06.9 Rheumatoid arthritis, unspecified; M54.30 Sciatica, unspecified side; R79.1 Abnormal coagulation profile; R79.89 Other specified abnormal findings of blood chemistry; Z79.899 Other long term (current) drug therapy
CPT/HCPCS: 70450; 70551; 80053; 80307; 81001; 81240; 81241; 82435; 82550; 82565; 82947; 84132; 84295; 84484; 84520; 85025; 85303; 85306; 85384; 85610; 85613; 85730; 86147; 86850; 86900; 86901; 93005; 96361; 96372; 96374; 96376; 99285; G0378; J0131; J1650; J2405; J7030